=== PATIENT | female | born 1950 | race Caucasian/White ===

== ENCOUNTER 2023-08-13 09:00 | Outpatient (CLI) | payer OTHER | END 2023-08-13 09:01 | disposition home or self-care (01) | LOC: BICULT 09:00 | PROVIDERS: ATTEND Nurse Practitioner Family | DX: K82.8 Other specified diseases of gallbladder (principal) | CPT/HCPCS: 76705 ==

== ENCOUNTER 2024-07-17 08:48 | Outpatient (CLI) | payer OTHER | END 2024-07-17 08:49 | disposition home or self-care (01) | LOC: BICMAMMO 08:48 | PROVIDERS: ATTEND Nurse Practitioner Family | DX: M81.0 Age-related osteoporosis without current pathological fracture (principal); M85.851 Other specified disorders of bone density and structure, right thigh; M85.852 Other specified disorders of bone density and structure, left thigh | CPT/HCPCS: 77080 ==